=== PATIENT | female | born 1975 | race Caucasian/White ===

== ENCOUNTER 2021-03-13 18:02 | Emergency (ER) | payer BC ==
[2021-03-13 19:03] VITALS: TEMP 99.5
[2021-03-13] MEDS ORDERED: ACETAMINOPHEN TAB 325 MG TAB PO STA (19:37)
--- NOTE | 2021-03-13 19:43 | ED ---
General Adult HPI - General Chief complaint: Shortness of Breath Stated complaint: Covid + Time Seen by Provider: 03/13/21 19:30 Source: patient, family (spouse), RN notes reviewed Mode of arrival: ambulatory Limitations: no limitations - History of Present Illness Initial comments: This is a well-appearing 45-year-old female that presents to the emergency room with her after receiving a positive Covid test at the health department. Patient states the past 3 days she's had cough, body aches and nausea. Her children tested positive for Covid as well. She does have a history of colon cancer and is in remission. She also has a history of this CVA in 2016. Oxygen saturation is 97% and temperature is elevated 99.5 in the emergency room. She denies any vomiting but does complain of occasional nausea. She states that she has diarrhea but that is normal for her since her colon surgery. -: days(s) (3) Radiation: non-radiation Quality: aching Consistency: constant Improves with: none Worsens with: none Associated Symptoms: cough, nausea/vomiting, shortness of breath Treatments Prior to Arrival: none, other (covid + at health department) - Related Data Home Medications Medication Instructions Recorded Confirmed Aspirin EC [Ecotrin Low Dose] 81 mg PO BID 03/13/21 03/13/21 Cyanocobalamin (Vitamin B-12) 1,000 mcg PO DAILY 03/13/21 03/13/21 [Vitamin B-12] Ferrous Sulfate [Feosol] 325 mg PO MOWEFR 03/13/21 03/13/21 Metoprolol Tartrate [Lopressor] 25 mg PO BID 03/13/21 03/13/21 Multivitamins, Thera [Multivitamin 1 tab PO DAILY 03/13/21 03/13/21 (formulary)] Allergies Allergy/AdvReac Type Severity Reaction Status Date / Time oxoly platin (chemo drug) Allergy Unknown Uncoded 03/13/21 20:25 Review of Systems ROS Statement: Those systems with pertinent positive or pertinent negative responses have been documented in the HPI. ROS Other: All systems not noted in ROS Statement are negative. Past Medical History Past Medical History: Cancer, CVA/TIA Additional Past Medical History / Comment(s): clotting disorder factor 5. colon cancer and ovarian cancer History of Any Multi-Drug Resistant Organisms: None Reported Past Surgical History: Appendectomy, Hysterectomy Additional Past Surgical History / Comment(s): colectomy Past Psychological History: No Psychological Hx Reported Smoking Status: Never smoker Past Alcohol Use History: None Reported Past Drug Use History: None Reported General Exam Limitations: no limitations General appearance: alert, in no apparent distress Head exam: Present: atraumatic, normocephalic, normal inspection Eye exam: Present: normal appearance, EOMI ENT exam: Present: normal exam, normal oropharynx, mucous membranes moist Neck exam: Present: normal inspection, full ROM. Absent: tenderness, meningismus, lymphadenopathy, thyromegaly Respiratory exam: Present: normal lung sounds bilaterally. Absent: respiratory distress, wheezes, rales, rhonchi, stridor, chest wall tenderness, accessory muscle use Cardiovascular Exam: Present: tachycardia GI/Abdominal exam: Present: soft, normal bowel sounds. Absent: distended, tenderness, guarding, rebound, rigid Extremities exam: Present: full ROM, normal capillary refill Neurological exam: Present: alert, oriented X3, normal gait Psychiatric exam: Present: normal affect, normal mood Skin exam: Present: warm, dry, intact, normal color. Absent: rash, cyanosis, diaphoretic Course Vital Signs 03/13/21 03/13/21 03/13/21 18:58 22:52 23:33 Temperature 99.5 F Pulse Rate 122 H 97 99 Respiratory 20 22 22 Rate Blood Pressure 128/87 144/88 O2 Sat by Pulse 97 96 97 Oximetry Medical Decision Making - Medical Decision Making Patient presents to the emergency room with positive Covid test at the health department. She states that she's had symptoms for 4 days of cough, nausea and body aches. She has not been vaccinated. She was given monoclonal antibody infusion and tolerated the infusion well. Her vital signs are stable. Her oxygen saturation is 97%. She is directed to take vitamin C, vitamin D and seen follow-up with her primary care doctor next week. Return to the emergency room with any new or concerning symptoms. Disposition Clinical Impression: COVID-19 Disposition: HOME SELF-CARE Condition: Good Instructions (If sedation given, give patient instructions): Coronavirus Disease 2019 (COVID-19) Additional Instructions: Return to the emergency room with any new or worsening symptoms. Take Tylenol as needed for pain. Follow-up with the primary care doctor next week. Self quarantine for 10 days from symptom onset and 24 hours without fever. Is patient prescribed a controlled substance at d/c from ED?: No Referrals: None,Stated [Primary Care Provider] - 1-2 days Zulma Mcdowell MD [STAFF PHYSICIAN] - 1-2 days Time of Disposition: 22:42
[2021-03-13] MEDS ORDERED: SODIUM CHLORIDE 0.9% 50 ML IVPB ONE (21:15)
[2021-03-13] MEDS ORDERED: BAMLANIVIMAB (EUA) 700 MG, ETESEVIMAB (EUA) 1,400 MG in SODIUM CHLORIDE 0.9% 50 ML IVPB ONE (21:15)
[2021-03-13 22:53] VITALS: RESP 22
[2021-03-13 23:34] VITALS: BP 144/88; PULSE 99
== END 2021-03-13 23:34 | disposition home or self-care (01) ==
LOC: EC 18:02
DX: U07.1 COVID-19 (principal); Z79.82 Long term (current) use of aspirin; Z86.73 Personal history of transient ischemic attack (TIA), and cerebral infarction without residual deficits; Z85.038 Personal history of other malignant neoplasm of large intestine; Z90.49 Acquired absence of other specified parts of digestive tract; Z90.710 Acquired absence of both cervix and uterus
CPT/HCPCS: 99284; 96360; J3490

== ENCOUNTER → 2021-05-07 | Outpatient (CLI) | payer BC ==
--- NOTE | 2021-05-11 08:18 | MM ---
Reason for exam: clinical finding. Baseline mammogram. History: Patient is postmenopausal, has history of ovarian cancer at age 43, and has history of colon cancer at age 43. Family history of breast cancer in maternal aunt and breast cancer in paternal aunt. Physical Findings: Nurse did not find any significant physical abnormalities on exam. MG 3D Diag Mammo W/Cad GIO Bilateral CC and MLO view(s) were taken. There are scattered fibroglandular densities. There is no discrete abnormality. These results were verbally communicated with the patient and result sheet given to the patient on 05/07/21. ASSESSMENT: Incomplete: need additional imaging evaluation, BI-RAD 0 RECOMMENDATION: Ultrasound of the left breast. (for pain)
--- NOTE | 2021-05-11 08:19 | USB ---
Reason for exam: additional evaluation requested from abnormal screening. History: Patient is postmenopausal, has history of ovarian cancer at age 43, and has history of colon cancer at age 43. Family history of breast cancer in maternal aunt and breast cancer in paternal aunt. US Breast LT Technologist: Anu Slaughter Left complete breast ultrasound includes all four quadrants, the retroareolar region and axilla. Finding demonstrates no cystic or solid lesion seen. No duct ectasia or axillary adenopathy. These results were verbally communicated with the patient and result sheet given to the patient on 05/07/21. ASSESSMENT: Negative, BI-RAD 1 RECOMMENDATION: Routine screening mammogram of both breasts in 1 year. Manage on a clinical basis with regard to left breast burning and pain.
== END | disposition home or self-care (01) ==
LOC: RADMAMWWP 12:39
PROVIDERS: ATTEND Internal Medicine Hematology & Oncology
DX: N64.89 Other specified disorders of breast (principal); Z80.3 Family history of malignant neoplasm of breast; Z78.0 Asymptomatic menopausal state
CPT/HCPCS: 77062; 77066

== ENCOUNTER → 2022-05-18 | Outpatient (CLI) | payer BC ==
--- NOTE | 2022-05-19 19:30 | MM ---
Reason for Exam: Screening (asymptomatic). Last screening mammogram was performed 12 month(s) ago. Indicated Problems: Pain of the left side (Focal) for 18 Month(s) : pt states lymph node pain every couple days due to drainage from lt lymphatic drainage issue. dr menard. Patient History: Menarche at age 10. First Full-Term at age 21. Left ovary removed at age 43. Right ovary removed at age 43. Hysterectomy at age 43. Postmenopausal. Patient has history of breast feeding. Ovarian cancer, age 43. Colorectal cancer, age 43. Previous chemotherapy at age 43. Patient used Hormonal Contraceptives for 2 years. Paternal aunt had breast cancer. Maternal aunt had breast cancer. Risk Values: Gita 5 year model risk: 0.8%. NCI Lifetime model risk: 9.3%. Prior Study Comparison: 05/07/2021 Bilateral Diagnostic Mammogram, [facility]. Tissue Density: The breast tissue is almost entirely fat. Findings: Analyzed By CAD. Pattern appears symmetrical. No suspicious groups of microcalcifications, spiculated or lobular masses, architectural distortion or other secondary signs of malignancy are mammographically apparent. Overall Assessment: Benign, BI-RAD 2 Management: Screening Mammogram of both breasts in 1 year. A negative mammogram report should not preclude additional follow up of suspicious palpable abnormalities. Patient should continue monthly self breast exam. A clinical breast exam by your physician is recommended on an annual basis and results should be correlated with mammographic findings. Electronically signed and approved by: Azra Rivera D.O. Radiologis
== END | disposition home or self-care (01) ==
LOC: RADMAMWWP 16:03
PROVIDERS: ATTEND Internal Medicine Hematology & Oncology
DX: Z12.31 Encounter for screening mammogram for malignant neoplasm of breast (principal); Z80.3 Family history of malignant neoplasm of breast; Z78.0 Asymptomatic menopausal state; Z98.890 Other specified postprocedural states
CPT/HCPCS: 77063; 77067

== ENCOUNTER → 2024-01-20 | Outpatient (CLI) | payer BC ==
[2024-01-20 15:14] LABS: African American GFR (CKD) 89 (>60 ml/min/1.73 sqM); Blood Urea Nitrogen 17 mg/dL (7-17); Non-African American GFR(CKD) 77 (>60 ml/min/1.73 sqM)
--- NOTE | 2024-01-20 21:09 | CT ---
EXAMINATION TYPE: CT ChestAbdPelvis w con CT DLP: 1459 mGycm, Automated exposure control for dose reduction was used. DATE OF EXAM: 01/20/2024 4:47 PM COMPARISON: 01/17/2023. 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 Two-dimensional coronal and sagittal reconstructions were obtained. Contrast used:100ml mL of Isovue 300 with IV Contrast, Oral contrast used: with Oral Contrast Findings: EXAMINATION TYPE: CT ChestAbdPelvis w con CT DLP: 1459 mGycm, Automated exposure control for dose reduction was used. DATE OF EXAM: 01/20/2024 4:47 PM COMPARISON: None. CLINICAL INDICATION:Female, 48 years old with history of C18.2 MALIGNANT NEOPLASM OF ASCENDING COLON; [facility], Yearly follow up for colon cancer Technique: Multiple axial images of the chest, abdomen, and pelvis were obtained. Two-dimensional cor onal and sagittal reconstructions were obtained. Contrast used:100ml mL of Isovue 300 with IV Contrast, Oral contrast used: with Oral Contrast Findings: CHEST: LUNGS/ PLEURA: No focal consolidation, pneumothorax or pleural effusion. No new or enlarging pulmonar y nodules. AIRWAY: Patent and unremarkable. HEART: Size within normal limits. MEDIASTINUM: No gross evidence of adenopathy. VASCULATURE: No aortic aneurysm. MUSCULOSKELETAL: No acute osseous abnormalities. SOFT TISSUES/LYMPH NODES: Unremarkable. LOWER NECK: No significant findings. ABDOMEN: ABDOMEN LIVER: Unremarkable GALLBLADDER AND BILE DUCTS: Unremarkable. PANCREAS: Unremarkable. SPLEEN: Unremarkable. ADRENAL GLANDS: Unremarkable. KIDNEYS AND URETERS: No evidence of hydronephrosis or renal calculus. The ureters are unremarkable. PELVIS BLADDER: Unremarkable REPRODUCTIVE: Uterus is surgically absent. ABDOMEN & PELVIS STOMACH AND BOWEL: No evidence of bowel obstruction. Submucosal fat deposition within the sheldon of th e colon most pronounced in the sigmoid colon. Postsurgical changes of gastric lumen which appears sim ilar. PERITONEUM: No evidence of pneumoperitoneum or free fluid. VASCULATURE: No evidence of aortic aneurysm. MUSCULOSKELETAL: No acute osseous abnormalities. Mild disc degeneration changes are present throughou t the thoracolumbar spine. LYMPH NODES: No gross evidence for lymphadenopathy. SOFT TISSUE/ABDOMINAL WALL: Fat-containing ventral hernias containing loops of small bowel and colon no evidence for bowel wall thickening or evidence for circulation. IMPRESSION: 1. Stable exam, post surgical changes of the colon, no evidence for lymphadenopathy or mass to sugge st recurrence. 2. Multiple ventral wall hernias containing loops of small and large bowel. No evidence for strangul ation or obstruction. [facility], , 01/20/2024 9:06 PM
== END | disposition home or self-care (01) ==
LOC: RADCTMAIN 14:33
PROVIDERS: ATTEND Internal Medicine Hematology & Oncology
DX: C18.2 Malignant neoplasm of ascending colon
CPT/HCPCS: 36415; 71260; 74177; 82565; 84520